=== PATIENT | female | born 1965 | race Caucasian/White ===

== ENCOUNTER → 2023-01-14 | Outpatient (CLI) | payer BC ==
[~2023-01-14] VITALS: Ht 167.7 cm; Wt 87.7 kg
[~2023-01-14] MED LIST: BIOT1TAB PO; CHOL100L MC; DIPH25CA79 PO; FAMO-356 PO; OMEG-98 PO; VITA1CAP PO
== END | disposition home or self-care (01) ==
LOC: PREOP 05:28
PROVIDERS: ATTEND Podiatrist Foot & Ankle Surgery
DX: Z01.818 Encounter for other preprocedural examination (principal)

== ENCOUNTER 2023-01-21 06:33 | Day surgery (SDC) | payer BC ==
[~2023-01-21] VITALS: Ht 167.7 cm; Wt 87.7 kg
[2023-01-21] VITALS (12 sets, daily range): BP systolic 103–126; BP diastolic 64–88
[2023-01-21] MEDS ORDERED: ceFAZolin INJECTION 1,000 MG in NS (IVPB) 50 ML 50 ML IV ONE (07:00)
[2023-01-21] MEDS ORDERED: LACTATED RINGERS 1,000 ML 1,000 ML IV PRN (07:00)
[2023-01-21] MEDS ORDERED: LIDOCAINE 1% INJ 20 ML VIAL ONE (07:08)
[2023-01-21] MEDS ORDERED: BUPIVACAINE 0.5% 30 ML VIAL ONE (07:09)
--- NOTE | 2023-01-21 07:45 | Progress Note-Pre Operative ---
Pre-Operative Progress Note Date of Available H&P: Jan 21, 2023 Date H&P Reviewed: Jan 21, 2023 Time H&P Reviewed: 07:44 Pre-Operative Diagnosis: Soft Tissue Lesion left 2nd toe HU BROWN DPM Jan 21, 2023 07:45
[2023-01-21] MEDS ORDERED: fentaNYL INJECTION 100 MCG/2 ML VIAL ONE (07:46)
[2023-01-21] MEDS ORDERED: LIDOCAINE PF 2% 5 ML VIAL ONE (07:55)
[2023-01-21] MEDS ORDERED: ONDANSETRON INJECTION 4 MG/2 ML (SDV) ONE (07:55)
[2023-01-21] MEDS ORDERED: proPOfol INJECTION 200 MG/20 ML VIAL IV ONE (07:55)
[2023-01-21] MEDS ORDERED: dexAMETHasone INJ 10 MG/ML 1 ML VIAL ONE (07:55)
[2023-01-21] MEDS ORDERED: SEVOFLURANE (ULTANE) 15 ML INHAL SOLN ONE (08:20)
--- NOTE | 2023-01-21 08:25 | Progress Note-Post Operative ---
Post-Operative Progess Note Surgeon (s)/Entry Level Manufacturing Engineer (s) Surgeon HU BROWN DPM Entry Level Manufacturing Engineer: none Pre-Operative Diagnosis Soft Tissue Lesion left 2nd toe Post-Operative Diagnosis same Procedure & Operative Findings Date of Procedure 01/21/23 Procedure Performed/Findings Excision of Soft Tissue Lesion, left 2nd toe Anesthesia Type general Estimated Blood Loss Estimated blood loss (mL): minimal Specimens/Packing Specimens Removed Soft Tissue lesion left 2nd toe HU BROWN DPM Jan 21, 2023 08:25
[2023-01-21] MEDS ORDERED: ACHD5005 PO (08:27)
[2023-01-21] MEDS ORDERED: HYDROcodone/ACETAMINOPHEN 5 MG/325 MG TABLET PO PRN (08:30)
[2023-01-21] MEDS ORDERED: LACTATED RINGERS 1,000 ML 1,000 ML IV SCH (08:30)
--- NOTE | 2023-01-21 08:34 | Anesthesia-General Post-Op ---
General Patient Condition Mental Status/LOC: Same as Preop Cardiovascular: Satisfactory Nausea/Vomiting: Absent Respiratory: Satisfactory Pain: Controlled Complications: Absent Post Op Complications Complications None Follow Up Care/Instructions Patient Instructions None needed. Anesthesia/Patient Condition Patient Condition Patient is doing well, no complaints, stable vital signs, no apparent adverse anesthesia problems. No complications reported per nursing. JOSE LYONS CRNA Jan 21, 2023 08:34
[2023-01-21] MEDS ORDERED: ONDANSETRON INJECTION 4 MG/2 ML (SDV) IVP PRN (08:45)
--- NOTE | 2023-01-21 18:52 | OPERATIVE REPORT ---
DATE OF SERVICE: 01/21/2023 SURGEON: Tiff Brown DPM. PREOPERATIVE DIAGNOSIS: Soft tissue lesion, left foot. POSTOPERATIVE DIAGNOSIS: Soft tissue lesion, left foot. PROCEDURE: Excision of soft tissue lesion, left second toe. WOUND CLASS: Clean. ANESTHESIA: General. HEMOSTASIS: Pneumatic thigh tourniquet at 250 mmHg. INDICATION: This 57-year-old female presents complaining of a painful lesion to the left second digit. Aspiration was unsuccessful. The patient is agreeable to surgical intervention after risks and complications were discussed at length. No guarantees were extended to the patient and she is willing to proceed. DESCRIPTION OF PROCEDURE: The patient was brought back to the operating table, placed in secure supine position. General anesthetic was then induced. Local anesthetic was applied to the second ray of the left foot, which included 10 mL of 1:1 mixture of 1% Xylocaine and 0.5% Marcaine. Thigh tourniquet was placed on the left lower extremity. Left foot was then prepped and draped in normal sterile manner. The left foot was then elevated, allowed to exsanguinate after which the tourniquet was inflated to 250 mmHg. This was all done after appropriate timeout was performed. Attention was then directed to the medial aspect of the left second toe where a 2 cm longitudinal linear incision was created. The incision was deepened in the same plane with great care not to disrupt any neurovascular structures. Only necessary blood vessels were cauterized as encountered. The incision was deepened down to the subcuticular tissue where a well encapsulated soft tissue lesion was identified with a little over 1 cm in diameter. It had no identifiable source such as a tendon sheath or joint that it extended from. The lesion was sent for gross and microscopic evaluation. Inspection of the surrounding tissue, there is no discernible abnormalities identified. The wound was flushed with copious amounts of normal saline and closure was then performed in layers. Deep and subcuticular tissue was reapproximated utilizing 4-0 Vicryl after which skin closure was performed with 4-0 Prolene in a simple interrupted type stitch. The postoperative dressing consisted of Betadine-soaked Adaptic, sterile 4 x 4, sterile Kerlix, all secured with a Coban wrap. The patient tolerated the anesthesia and procedure well and was transported from the operating room to the recovery area with vital signs stable and vascular status intact to all digits of the left foot. The patient is to keep the dressing dry, clean, and intact. She is to follow up in 10 days period of time or sooner if necessary. Job ID: [id number] DocumentID: [id number] Dictated Date: 01/21/2023 08:36:30 Bus Driver/Monitor Date: 01/21/2023 18:50:00 Dictated By: TIFF BROWN DPM
== END 2023-01-21 10:35 | disposition home or self-care (01) ==
LOC: SDC 06:33
PROVIDERS: ATTEND Podiatrist Foot & Ankle Surgery
DX: D36.13 Benign neoplasm of peripheral nerves and autonomic nervous system of lower limb, including hip (principal)
CPT/HCPCS: 87081; 88305; 88341; 88342